=== PATIENT | male | born 2005 | race Caucasian/White ===

== ENCOUNTER 2025-05-27 12:45 | Outpatient (AMB) | payer OTHER, SELFPAY ==
--- NOTE | 2025-05-27 12:47 | MHC.PC.OV ---
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 Intake Note: New patient to establish care and cpe Rehabilitation Tech Required: No Allergies No Known Allergies Allergy (Verified 05/27/25 13:07) Medication List - Last Reconciled 05/27/25 by RUTHIE Goldstein No Known Home Meds Tobacco use date assessed: 05/27/25 Dental Screening Dental Screen Date: 05/27/25 Did you have a dental visit in the last 12 months?: Yes Did you have a dental problem in the last 6 months where you did not have access to dental care?: No Was dental information given to patient?: Patient has dentist HPI HPI Comments History of Present Illness Details 20 y/o M with obesity, fhx prostate ca, hx of low testosterone Social: , works as [employer] Surgery: None Family: Mom alive and well; Dad alive and well; MGM asthma, PGM HTN; PGF prostate ca; MGF prostate ca Health Maintenance: Tdap 2019 Flu declined 05/27/25 Specialists: Optho glasses last exam 2 years ago History of Present Illness The patient is a 20-year-old male presenting to establish care, for a CPE, and for evaluation of difficulty with weight management. No recent PCP; No records Obesity and Weight Management: - The patient has a BMI of 30.5 and reports a long-standing issue with his weight, which has been a mystery for him. - He notes that he was a skinny child but became tubby at one point without any change in his diet. - He describes an experience with marathon training where he and a roommate ate the exact same measured portions and followed the same exercise routine; however, his roommate lost weight rapidly while he saw no noticeable change for months, which he found frustrating. - The only time he successfully lost weight was during a four-month period when he used non-prescribed testosterone cypionate and trenbolone acetate, administered as one week on and two weeks off. - After stopping the substances, he reports that all the weight returned about nine months later. - He notes that his exercise has decreased since getting due to having less free time. Hypogonadism and Male Infertility: - The patient reports that he and his have been trying to have children but have not been successful. - He has a history of a low-average testosterone level, discovered through blood work done about a year ago. - Following this, he was seen by a functional medicine doctor and prescribed enclomiphene, which led to a slight increase in his testosterone levels but no drastic change. - He has a history of using non-prescribed testosterone cypionate and trenbolone acetate, which he obtained from a friend. - He expresses concern about the potential long-term effects of this past substance use on his ability to have children. Past Medical History - No known allergies to medications. - No current medications. - History of non-prescribed use of testosterone cypionate and trenbolone acetate. - Past treatment with enclomiphene. - Screening for anxiety and depression was negative. Past Surgical History - Laceration repair with sutures on his palm approximately 7 years ago. - Denies any major surgeries. Family History - Both parents are alive and well. - Maternal Grandmother: Asthma. - Paternal Grandmother: History of hypertension. - Paternal Grandfather: History of prostate cancer. - Maternal Grandfather: History of prostate cancer. Social History - Marital Status: . - Children: None; he and his have unsuccessfully tried to conceive. - Occupation: [employer]. - Substance Use: Reports past use of non-prescribed testosterone cypionate and trenbolone acetate. - Exercise: Previously maintained a rigorous gym routine of 4-5 hours daily, 5 days a week, but has had less time to exercise since marriage. - Diet: Previously engaged in calorie counting and maintaining a caloric deficit during a period of marathon training. Review of Systems - Constitutional: Reports difficulty losing weight. - Eyes: Wears glasses, reports his vision may have improved. - GI: Reports normal bowel function. - : Reports normal urinary function. - Endocrine: Reports previous low-average testosterone levels. - Reproductive: Reports inability to conceive with his . - Musculoskeletal: Reports a stretching sensation with straight leg raise but denies significant pain. - Psychiatric: Denies anxiety or depression. Physical Exam General: Well developed, well nourished, in no acute distress. Appears stated age. BMI of 30.5. Head: Normocephalic, atraumatic. Eyes: Pupils are equal, round and reactive to light and accommodation. Conjunctivae are clear. Scleras nonicteric bilat. Vision grossly normal. Patient wears glasses, last eye exam was two years ago with no significant changes in vision. Ears: TMs clear AU, EACS WNL Nose: Patent, without discharge. Neck: No carotid bruit bilat. Supple, no adenopathy or thyromegaly. No pain or tenderness noted. Breast: Edu on SBE Lungs: Clear to auscultation bilaterally. No rales, rhonchi or wheeze noted. Good air flow in all thakkar. Heart: Regular rate and rhythm. No murmurs, click, rubs or gallops are noted. Abdomen: Bowel sounds present in all quadrants. The abdomen is soft, nontender, with no masses or organomegaly noted. No hernias are noted. : Deferred. Reviewed CECIL & recommendations Pulses: Peripheral pulses are equal and palpable bilaterally. Extremities: No clubbing, cyanosis nor edema is noted. Neurologic: Gait and station normal. Cranial Nerves 2-12 intact. Motor strength grossly symmetrical and intact. No sensory loss. Balance normal. Skin: No rashes, ulcers, or lesions noted. Turgor is good. Skin color is good. Hair and nails are without abnormalities. Psych: Normal eye contact, affect and mood appropriate, and normal interactions. Patient is alert and appropriate to context. Screening for anxiety and depression was normal. Results - Labs: Blood work was ordered but results are not yet available. Medical Decision Making The patient is a 20-year-old male establishing care, primarily concerned about long-standing difficulty with weight loss and an inability to conceive with his . His BMI of 30.5, patient-reported history of low-average testosterone, and failure to lose weight with diet and exercise are significant. The history of non-prescribed testosterone and trenbolone acetate use, which was the only period he experienced weight loss, is concerning and may have contributed to or unmasked an underlying endocrine issue. Given the combination of obesity, possible hypogonadism, and infertility, a comprehensive endocrine evaluation is warranted to investigate the root cause. I will obtain initial blood work today, including a hormone panel. However, I will strongly recommend a referral to endocrinology regardless of the initial lab results, as they can perform a more thorough workup of the chsuaaplkahh-izygvryqs-wpsmiqo axis and overall hormonal status to address both his weight concerns and fertility issues. Plan Health Maintenance - The patient is establishing primary care. - A follow-up appointment will be scheduled. - The patient was instructed to sign up for the e-Go [employer] darryl for communication and access to his health records. - Immunizations were reviewed; his Tetanus shot is up to date. 1. Obesity And Hypogonadism - Labs will be drawn today to screen for diabetes and check hormone levels, including testosterone. - The patient will be referred to endocrinology for a comprehensive evaluation to determine the underlying cause of his symptoms, as the prior testosterone use may have been a temporary solution for a deeper issue. - The endocrinology referral is strongly suggested even if initial lab results are within the normal range, as a more complete workup is necessary. 2. Male Infertility - The patient's inability to conceive with his is a significant concern, especially given his history of anabolic steroid use which can affect fertility. - The planned endocrinology consultation will be critical in evaluating his reproductive health and determining the cause of his infertility. Patient Instructions - Go to the lab located in this building today to have your blood drawn. - You will receive a phone call from our endocrinology department to schedule your specialist appointment. It is important that we figure out the underlying cause of your symptoms. - Before you leave today, please stop at the front sight attacher to get a printout from today's visit and to schedule your next appointment with our office. - You will receive an email with a link to sign up for the [employer] dar[facility]. Please create an account so you can view your lab results and send secure messages to me and my team. - Regarding your work as a [employer], your tetanus shot is up to date, and no other specific occupational health measures are needed at this time. - RTO 1 year CPE sooner PRN Consent The patient verbally consented to undergo screening lab work, including diabetes and hormone testing. Patient was informed and verbally consented to the use of an ambient scribe for clinic note documentation during this visit. An additional 15 minutes was spent addressing the problem(s) noted at todays visit. This includes time spent before the visit reviewing the chart, time spent during the visit, and time spent after the visit on documentation reviewing laboratory results, diagnostic imaging, medications, performing a medically necessary evaluation, counseling on diagnoses, care coordination, ordering appropriate tests, ordering appropriate medications, review of tests performed by other providers, reporting test results with the patient, communication with other healthcare providers. 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 1. Little interest or pleasure in doing things: not at all 2. Feeling down, depressed, or hopeless: not at all 3. Trouble falling or staying asleep, or sleeping too much: several days 4. Feeling tired or having little energy: not at all 5. Poor appetite or overeating: not at all 6. Feeling bad about yourself - or that you are a failure or have let yourself or your family down: not at all 7. Trouble concentrating on things, such as reading the newspaper or watching television: not at all 8. Moving or speaking so slowly that other people could have noticed. Or the opposite - being so fidgety or restless that you have been moving around a lot more than usual: not at all 9. Thoughts that you would be better off or of hurting yourself in some way: not at all Total score: 1 Depression Screening Interpretation: Negative Depression Screening Done: Yes 20493 - PHQ-9 Billing: Yes Source: Developed by Drs. Cl L. Ayde Higgins Kurt Kroenke and colleagues, with an educational elio from [employer]. Thrive Questionnaire Date Thrive assessed: 05/27/25 I am a: Patient What is your living situation today?: I have a steady place to live Within the past 12 months, did the food you bought not last and you didn't have the money to get more?: Never true Within the past 12 months, did you worry whether your food would run out before you got money to buy more?: Never true Do you have trouble paying for medicines?: I choose not to answer this question Do you have trouble getting transportation to medical appointments?: No Do you have trouble paying your heating and electricity bill?: No Do you have trouble taking care of your child, family member or friend?: No Do you have trouble with day-to-day activities such as bathing, preparing meals, shopping, managing finances, etc.?: No Are you currently unemployed and looking for a job?: No Are you interested in more education?: Yes Please select the resources that you would like help with: None Currently or been in a relationship where the following occur: No concerns reported THRIVE Score: 0 AUDIT C Alcohol Use Questionnaire (AUDIT-C) 1. How often do you have a drink containing alcohol?: Never 3. How often do you have six or more drinks on one occasion?: Never Total Score: 0 Score Reviewed/Action Taken: Yes HOLLY-7 AMB Questionnaire HOLLY-7 Date HOLLY - 7 assessed: 05/27/25 Feeling nervous, anxious, or on edge: 0 = Not at all Not being able to stop or control worryin = Not at all Worrying too much about different things: 1 = Several days Trouble relaxin = Several days Being so restless that it is hard to sit still: 0 = Not at all Becoming easily annoyed or irritable: 0 = Not at all Feeling afraid as if something awful might happen: 0 = Not at all Total HOLLY-7 score (0-4 normal; 5-9 mild; 10-14 moderate; 15-21 severe): 2 Source: Developed by Ayde Abel Kurt Kroenke and colleagues, with an educational elio from [employer]. HOLLY-7 Assessment Billing HOLLY-7 Assessment Tool: HOLLY-7 Assessment 96388 Physical exam (Primary Care) Vital Signs: Last Vital Signs Temp 97.1 F 05/27/25 12:55 Pulse 82 05/27/25 12:55 Resp 13 05/27/25 12:55 BP 142/82 H 05/27/25 12:55 Pulse Ox 99 05/27/25 12:55 Oxygen Delivery Method Room Air 05/27/25 12:55 BMI result Body Mass Index 30.5 BMI Assessment/Plan discussion: High BMI High, discussed plan: lifestyle Tobacco/Smoking Status: Tobacco use Status Tobacco use date assessed 05/27/25 05/27/25 12:57 Patient Tobacco Use Status Never used Tobacco 05/27/25 12:58 e-Cigarette/Vaping Use Never Used 05/27/25 12:58 PHQ-9: PHQ-9 Score PHQ-9: Total score 1 05/27/25 13:18 Depression Screening Interpretation: Negative Thrive Assessment: Date of Thrive Assessment Date Thrive assessed 05/27/25 05/27/25 12:57 Currently or been in a relationship where the following occur: No concerns reported Coding Level of Care Code New Pt Level 2 (72995) New Pt Prev Care 18-39yr(70337 Diagnoses Encounter to establish care with new provider Z76.89 Obesity (BMI 30-39.9) E66.9 Influenza vaccination declined Z28.21 Low testosterone in male R79.89 Adult general medical exam Z00.00 Laboratory exam ordered as part of routine general medical examination Z00.00 Additional Codes HOLLY-7 Assessment Billing - HOLLY-7 Assessment Tool: HOLLY-7 Assessment 33712 ([id number]) PHQ-9 - 22475 - PHQ-9 Billing: Yes ([id number]) Assessment & Plan Assessment & Plan (1) Encounter to establish care with new provider: Code(s): Z76.89 - Persons encountering health services in other specified circumstances (2) Obesity (BMI 30-39.9): Code(s): E66.9 - Obesity, unspecified Category: Medical (3) Influenza vaccination declined: Onset Date: ~05/27/25 Code(s): Z28.21 - Immunization not carried out because of patient refusal Category: Medical (4) Low testosterone in male: Code(s): R79.89 - Other specified abnormal findings of blood chemistry Category: Medical (5) Adult general medical exam: Onset Date: ~05/27/25 Code(s): Z00.00 - Encounter for general adult medical examination without abnormal findings Category: Medical (6) Laboratory exam ordered as part of routine general medical examination: Code(s): Z00.00 - Encounter for general adult medical examination without abnormal findings Category: Medical Plan . Orders: Orders Comprehensive Met. Panel Today E66.9 - Obesity, unspecified, Z00.00 - Encounter for general adult medical examination without abnormal findings Hemoglobin A1c Today E66.9 - Obesity, unspecified, Z00.00 - Encounter for general adult medical examination without abnormal findings Vitamin D 25-OH Total Today E66.9 - Obesity, unspecified, Z00.00 - Encounter for general adult medical examination without abnormal findings CT NG by PCR Urine Today E66.9 - Obesity, unspecified, Z00.00 - Encounter for general adult medical examination without abnormal findings Lipid Panel Today E66.9 - Obesity, unspecified, Z00.00 - Encounter for general adult medical examination without abnormal findings Microalbumin, Random (w Creat) Today E66.9 - Obesity, unspecified, Z00.00 - Encounter for general adult medical examination without abnormal findings TSH reflex Free T4 Today E66.9 - Obesity, unspecified, Z00.00 - Encounter for general adult medical examination without abnormal findings Vitamin B12 and Folate Today E66.9 - Obesity, unspecified, Z00.00 - Encounter for general adult medical examination without abnormal findings Testosterone, Free/Total Today R79.89 - Other specified abnormal findings of blood chemistry Referrals Endocrinology Referral R79.89 - Other specified abnormal findings of blood chemistry Patient Instructions: Walk-In Care (Urgent Care): We Make it Easy Walk-in for urgent medical issues such as: ? Seasonal Allergies ? Insect Bites ? Cough ? Diarrhea ? Acute Asthma Attacks ? Back, Knee or Joint Pain ? Ear Infection ? Fever without a Rash ? Headaches ? Nausea ? Trion Eye, Rash or Skin Irritation ? Sore Throat ? Sports Physicals ? Vomiting Most insurances are accepted. Patients do not need to be part of the [facility] to seek care at the walk-in clinic. Locations [address], [place] Open Tuesday through Tuesday 8am-5pm *Hours may vary due to staffing availability. To confirm Walk-In Care hours please call. [address], [place] [address] ? [phone] [facility] Walk-In Care in [place] provides services to ages 18 and over. Open Tuesday-Tuesday: 7 a.m. to 5 p.m. and Tuesday: 9 a.m. to 3 p.m.* *Hours may vary due to staffing availability. To confirm Walk-In Care hours in [place], please call [phone]. [address] [place] [address] ? [phone] [facility] Walk-In Care in [place] provides services to ages 12 and over. Open Tuesday-Tuesday: 8 a.m. to 5 p.m. Hours may vary due to staffing availability. To confirm Walk-In Care hours in [place], please call [phone]. LABORATORY SERVICES: [facility] Lab ? Primary Location [address] [place] [address] Tuesday through Tuesday 6:00 AM ? 5:00 PM Tuesday 7:00 AM ? 11:00 AM* [phone] The [facility] Lab is centrally located near the front entrance of the [facility] for easy outpatient access. Convenient parking is provided for outpatients. *Hours may vary due to staffing availability. To confirm Laboratory hours for any location, please call [phone]. Offsite Location For your convenience, we offer offsite laboratory draw stations at the following locations: [address] [place] [address] ? [address], [address] Tuesday through Tuesday 7:30 AM ? 1:00 PM* [phone] *Hours may vary due to staffing availability. To confirm Laboratory hours for any location, please call [phone]. [place] ? [address] Tuesday through Tuesday 6:00 AM ? 3:30 PM* Tuesday 6:30 AM ? 3 PM* [phone] *Hours may vary due to staffing availability. To confirm Laboratory hours for any location, please call [phone] [place] [address] Tuesday through Tuesday 7:30 AM ? 4:00 PM* [phone] *Hours may vary due to staffing availability. To confirm Laboratory hours for any location, please call [phone]. [facility] Tuesday through 9:00 AM ? 4:00 PM* *Hours may vary due to staffing availability. To confirm Laboratory hours for any location, please call [phone]. Appointments are not necessary. Walk-ins are welcome. Like all the departments throughout the [facility], our Lab undergoes frequent reviews to ensure the quality and accuracy of test results, and our staff takes special pride in its status as a nationally accredited facility. Patient Portal: [facility] ONE PATIENT. ONE RECORD. BETTER CARE. [facility] has a fully integrated, cutting-edge mobile electronic health information system that has revolutionized the way we care for our patients and manage our organization. This system improves communication and coordination enabling us to provide safe, higher-quality care, and an overall positive experience for staff and patients. Our first priority, as always, is to deliver the highest quality care possible. The system is running in the background supporting that priority. This portal is for all [facility] services and practices. If you are experiencing any technical difficulties with enrolling or logging into the Patient Portal please complete the [facility] Patient Portal Technical Support Form. [facility] now offers a new secure on-line interactive tool for patients to review their health information ? ?Patient Portal. This interactive web portal will enable patients and their families to take an active role in their care by providing easy, secure access to their health information via the internet. The Patient Portal provides patients with instant access to their health information, including laboratory results, medications, allergies, demographic information, visit history, and more. In addition to managing their own care, parents and health care proxies with authorized consent will appreciate the ability to access the records of those individuals for whom they provide care. Please note: if you wish to gain access (Proxy) to another patient?s portal, you will be required to come to the Medical Records Department in person at [facility]. Both the patient giving proxy access and the proxy will need to provide photo identification and complete the appropriate authorization. The Patient Portal also allows track their appointments online. The [facility] Patient Portal also saves patients time by allowing them to submit updates to their demographic and contact information prior to their visits. Portal email notifications will also alert patients to any new activity on their portal, such as test results and new appointments. In order to initially enroll in the [facility] Patient Portal, you will need to enter some required information including the following: your [facility] Medical Record number your personal home email address name date of Please note: In order to enroll in the [facility] Patient Portal, we need to have your email address on file in your electronic medical record. ?The email address needs to be specific for one person (yourself) in order for your Portal enrollment to be successful. ?You can update your email address in person with our Registration staff when you are registering for a hospital visit. ?Otherwise, you will need to come to the Health Information Management (Medical Records) Department at [facility]. ?We are open from Tuesday ? Tuesday from 7:30 a.m. ? 4:30 p.m. ?You will be required to present a photo id. Once you have successfully enrolled in the Patient Portal, you will receive a one-time user id and password for the Portal, sent to your email address. ?This will allow you to log into the Patient Portal within 99 hrs and reset your own logon id and password, and define personal security questions. ?Once your permanent login and password have been set, you can log into the [facility] Patient Portal at any time via the blue button above or from the Portal Logon button on any page of the [facility] website. [facility] and [facility] encourage all of our patients to enroll in Patient Portal as it presents a valuable opportunity for patients and their families to actively participate in their care and stay healthy Welcome to [facility]. ?We look forward to working with you. Health screenings for men You should visit your health care provider regularly, even if you feel healthy. The purpose of these visits is to: Screen for medical issues Assess your risk for future medical problems Encourage a healthy lifestyle Update vaccinations and other preventive care services Help you get to know your provider in case of an illness Information Even if you feel fine, you should still see your provider for regular checkups. These visits can help you avoid problems in the future. For example, the only way to find out if you have high blood pressure is to have it checked regularly. High blood sugar and high cholesterol level also may not have any symptoms in the early stages. Simple blood tests can check for these conditions. There are specific times when you should see your provider or receive specific health screenings. The [place] Preventive Services Task Force publishes a list of recommended screenings. Below are screening guidelines for men ages 40 to 64. BLOOD PRESSURE SCREENING Have your blood pressure checked at least once every year. Watch for blood pressure screenings in your area. Ask your provider if you can stop in to have your blood pressure checked. Ask your provider if you need your blood pressure checked more often if: You have diabetes, heart disease, kidney problems, or are overweight or have certain other health conditions You have a first-degree relative with high blood pressure You are Black Your blood pressure top number is from 120 to 129 mm Hg, or the bottom number is from 70 to 79 mm Hg If the top number is 130 mm Hg or greater or the bottom number is 80 mm Hg or greater, this is considered stage 1 hypertension. Schedule an appointment with your provider to learn how you can lower your blood pressure. Effects of age on blood pressure CHOLESTEROL SCREENING Cholesterol screening should begin at age 35 for men with no known risk factors for coronary heart disease. Repeat cholesterol screening should take place: Every 5 years for men with normal cholesterol levels More often if changes occur in lifestyle (including weight gain and diet) More often if you have diabetes, heart disease, kidney problems, or certain other conditions COLORECTAL CANCER SCREENING If you are under age 45, talk to your provider about getting screened. You may need to be screened if you have a strong family history of colon cancer or polyps. Screening may also be considered if you have risk factors such as a history of inflammatory bowel disease or polyps. If you are age 45 to 75, you should be screened for colorectal cancer. There are several screening tests available: A stool-based fecal occult blood (gFOBT) or fecal immunochemical test (FIT) every year A stool sDNA test every 1 to 3 years Flexible sigmoidoscopy every 5 years or every 10 years with stool testing FIT done every year CT colonography (virtual colonoscopy) every 5 years Colonoscopy every 10 years You may need a colonoscopy more often if you have risk factors for colorectal cancer, such as: Ulcerative colitis A personal or family history of colorectal cancer A history of growths in your colon called adenomatous polyps DENTAL EXAM Go to the dentist once or twice every year for an exam and cleaning. Your dentist will evaluate if you have a need for more frequent visits. DIABETES SCREENING All adults who do not have risk factors for diabetes should be screened starting at age 35 and repeated every 3 years. If you have other risk factors for diabetes, such as a first degree relative with diabetes, overweight or obesity, high blood pressure, prediabetes, or a history of heart disease, you may be tested more often. If you are overweight and have other risk factors, such as high blood pressure and are planning to become , screening is recommended. EYE EXAM Have an eye exam every 2 to 4 years ages 40 to 54 and every 1 to 3 years ages 55 to 64. Your provider may recommend more frequent eye exams if you have vision problems or glaucoma risk. Have an eye exam that includes an examination of your retina (back of your eye) at least every year if you have diabetes. IMMUNIZATIONS Commonly needed vaccines include: Flu shot: get one every year COVID-19 vaccine: ask your provider what is best for you Tetanus-diphtheria and acellular pertussis (Tdap) vaccine: have as one of your tetanus-diphtheria vaccines if you did not receive it as an adolescent Tetanus-diphtheria: have a booster (or Tdap) every 10 years Varicella vaccine: receive 2 doses if you never had chickenpox or the varicella vaccine and were born in 1980 or after Hepatitis B vaccine: receive 2, 3, or 4 doses, depending on your exact circumstances, if you did not receive these as a child or adolescent, until age 59 Shingles (herpes zoster) vaccine: at or after age 50 Ask your provider if you should receive other immunizations, especially if you have certain medical conditions, such as diabetes or are at increased risk for some diseases such as pneumonia. INFECTIOUS DISEASE SCREENING Screening for hepatitis C: all adults ages 18 to 79 should get a one-time test for hepatitis C. Screening for human immunodeficiency virus (HIV): all people ages 15 to 65 should get a one-time test for HIV. Depending on your lifestyle and medical history, you may need to be screened for infections such as syphilis, chlamydia, and other infections. LUNG CANCER SCREENING You should have an annual screening for lung cancer with low-dose computed tomography (LDCT) if: You are age 50 to 80 years AND You have a 20 pack-year smoking history AND You currently smoke or have quit within the past 15 years OSTEOPOROSIS SCREENING If you are age 50 to 64 and have risk factors for osteoporosis, you should discuss screening with your provider. Risk factors can include long-term steroid use, low body weight, smoking, heavy alcohol use, having a fracture after age 50, or a family history of hip fracture or osteoporosis. Osteoporosis PHYSICAL EXAM All adults should visit their provider from time to time, even if they are healthy. The purpose of these visits is to: Screen for diseases Assess risk of future medical problems Encourage a healthy lifestyle Update vaccinations and other preventive care services Maintain a relationship with a provider in case of an illness Your height, weight, and body mass index (BMI) should be checked at every exam. During your exam, your provider may ask you about: Depression and anxiety Diet and exercise Alcohol and tobacco use Safety, such as use of seat belts and smoke detectors Your medicines and risk for interactions PROSTATE CANCER SCREENING If you're 55 through 69 years old, before having the test, talk to your provider about the pros and cons of having a PSA test. Ask about: Whether screening decreases your chance of dying from prostate cancer. Whether there is any harm from prostate cancer screening, such as side effects from testing or overtreatment of cancer when discovered. Whether you have a higher risk of prostate cancer than others. If you are age 55 or younger, screening is not generally recommended. You should talk with your provider about if you have a higher risk for prostate cancer. Risk factors include: Having a family history of prostate cancer (especially a brother or father) Being If you choose to be tested, the PSA blood test is repeated over time (yearly or less often), though the best frequency is not known. Prostate examinations are no longer routinely done on men with no symptoms. Prostate cancer SKIN EXAM Your provider may check your skin for signs of skin cancer, especially if you're at high risk. People at high risk include those who have had skin cancer before, have close relatives with skin cancer, or have a weakened immune system. TESTICULAR EXAM The [place] Preventive Services Task Force (USPSTF) now recommends against performing testicular self-exams. Doing testicular self-exams has been shown to have little to no benefit.
[2025-05-27 12:55] VITALS: BP 142/82; PULSE 82; RESP 13; TEMP 36.2; O2SAT 99; BMI 30.5
--- OUTSIDE RECORDS SUMMARY | 2025-05-27 14:36 | XMS_ITS | Clinical Summary ---
Author Organization [facility] Address [address] [place] [id number] Phone Care Team Providers Care Data Entry Clerk Name Role Phone Viv Antunez MD Primary Care Pro vider Allergies No known active allergies Medications No known medications Active Problems Problem Noted Date Diagnosed Date Immunizations incomplete 01/11/2019 Assessment & Plan (01/11/2019 2:16 PM EDT): Due to transfer from closed pediatric office Vitamin D deficiency 02/06/2018 Immunizations Immunization Administration Dates Next Due HPV Vaccine 9 Valent 01/12/2018 Hep B, ped/adol 01/11/2019 MMR 01/11/2019 Meningococcal Conj (Menactra) MCV4P 01/12/2018 Tdap 01/11/2019,01/12/2018 Social History Tobacco Use Types Packs/Day Years Used Date Smoking Tobacco: Never Smokeless Tobacco: Never Alcohol Use Standard Drinks/Week Comments No 0 (1 standard drink = 0.6 oz pur e alcohol) Hunger/Food Answer Date Recorded No 02/23/2020 Stable Housing Answer Date Recorded No 02/23/2020 Transportation Concerns Answer Date Rec orded No 02/23/2020 Hazards in Home Answer Date Recorded No 04/14/2020 Financing Utilities Answer Date Recorde d No 04/14/2020 Safety at Home Answer Date Recorded No 04/14/2020 Outside Support Answer Date Recorded No 04/14/2020 Understanding Health Concerns Answer Da te Recorded No 04/14/2020 Financing Health Concerns Answer Date R ecorded No 04/14/2020 Missing School or Work Answer Date Reagan rded No 04/14/2020 Sex and Gender Information Value Date Recorded Sex Assigned at Not on file Legal Sex Male 4:29 PM EDT Gender Identity Not on file Sexual Orientation Not on file Last Filed Vital Signs Vital Sign Reading Time Taken Comments Blood Pressure 132/69 01/11/2019 9:39 AM EDT Pulse 65 01/11/2019 9:39 AM EDT Temperature 37 C (98.6 F) 01/11/2019 9:39 AM EDT Respiratory Rate - - Oxygen Saturation - - Inhaled Oxygen Concentration - - Weight 80.5 kg (177 lb 6 oz) 01/11/2019 9:39 AM EDT Height 170.8 cm (5' 7.25 ) 01/11/2019 9:39 AM ED T Body Mass Index 27.57 01/11/2019 9:39 AM EDT Plan of Treatment Health Maintenance Due Date Last Done Comments HPV Vaccines (2 - Male 2-dos e series) 07/15/2018 01/12/2018 Men B Vaccine (1 of 2 - Standard) 2019 Hepatitis B Vaccines (2 of 3 - 3-dose series) 02/08/2019 01/11/2019 Influenza Vaccines (#1) 2024 COVID-19 Vaccine (1 - 2024-2 6 season) 2025 DTaP,Tdap,and Td Vaccines (3 - Td or Tdap) 01/11/2029 01/11/2019, 01/12/2018 Meningococcal Vaccine Aged Out 01/12/2018 No piedad amor eligible based on patient's age to complete this topic MMR Vaccines Completed 01/11/2019 HIB Vaccines Aged Out No longer eligi ble based on patient's age to complete this topic Hepatitis A Vaccines Aged Out No long er eligible based on patient's age to complete this topic IPV Vaccines Aged Out No longer eligi ble based on patient's age to complete this topic Pneumococcal Vaccine Aged Out No long er eligible based on patient's age to complete this topic [facility] Care Teams Data Entry Clerk Relationship Specialty Start Date End Date Viv Antunez MD [address] [place] [id number] PCP - General Pediatrics 01/12/18
== END 2025-05-27 13:24 | disposition home or self-care (01) ==
LOC: HO.HMCFM 12:46
PROVIDERS: PCP Nurse Practitioner Family; Visit Provider Nurse Practitioner Family
DX: Z00.00 Encounter for general adult medical examination without abnormal findings (principal); E66.9 Obesity, unspecified; Z68.30 Body mass index [BMI] 30.0-30.9, adult; E29.1 Testicular hypofunction; Z28.21 Immunization not carried out because of patient refusal